=== PATIENT | male | born 1995 | race Caucasian/White ===

== ENCOUNTER 2021-11-01 19:50 | Emergency (ER) | payer OTHER, SELFPAY ==
--- NOTE | ~2021-11-01 | XR_ITS ---
EXAMINATION: XR CHEST CLINICAL INFORMATION: Positive COVID. COMPARISON: None TECHNIQUE: PA view of the chest was obtained. FINDINGS: Normal appearance of the cardiomediastinal silhouette. Multifocal hazy and ill-defined airspace opacities more noticeable in the lower lungs. No pleural effusions or pneumothorax. No acute osseous abnormalities. Surgical clips and anastomosis in the upper quadrant. XR/XR chest 1V IMPRESSION: Multifocal hazy airspace opacities concerning for an atypical viral pneumonia in the appropriate clinical context.
[2021-11-01 20:27] VITALS: BP 126/69; PULSE 102; RESP 18; TEMP 36.4; O2SAT 97; BMI 32.9
[2021-11-01 22:29] VITALS: BP 117/70; PULSE 99; RESP 22; TEMP 36.5; O2SAT 95
--- NOTE | 2021-11-01 23:14 | PC.NURSE ---
CARE TRANSFERED AND REPORT GIVEN TO JORDON LY.
--- NOTE | 2021-11-02 00:02 | ED.GENADULT ---
HPI - General Adult General Chief complaint: General Medical Stated complaint: +covid1 10/28 cough and fever Time Seen by Provider: 11/01/21 23:00 Source: patient Mode of arrival: ambulatory Limitations: no limitations History of Present Illness HPI narrative: 26-year-old male diagnosed with COVID on the 27 of October presents to ED for coughing, fever, and fatigue. Patient denies any chest pain or shortness of breath on exertion. Patient states he is vaccinated 2 shots moderna, but no booster. Patient denies any leg swelling or coughing up blood. Patient denies any pleuretic chest pain. Related Data Previous Rx's Medication Instructions Recorded amoxicillin 875 mg-potassium 1 tab PO Q12H 5 Days #10 tab 11/02/21 clavulanate 125 mg tablet (Augmentin) azithromycin 250 mg tablet See Rx Instructions .ROUTE 11/02/21 .COMPLEX #6 tab dexamethasone 6 mg tablet 6 mg PO DAILY 10 Days #10 tab 11/02/21 (Decadron) Allergies Allergy/AdvReac Type Severity Reaction Status Date / Time No Known Allergies Allergy Verified 11/01/21 20:26 Review of Systems Review of Systems: Coughing, body aches, fever, fatigue, weakness. Denies any chest pain. Denies any shortness of breath on exertion. Yes all other systems are reviewed and are negative [facility] Past Medical History Medical History (Updated 11/02/21 @ 01:13 by PATSY Jason) [place] type short stature syndrome Social History Social History Patient Tobacco Use Status: Never used Tobacco Use of substances other than those prescribed or required for medical reasons: No Advance Directives: No Physical Exam Vital Signs: Vital Signs: Last Vital Signs Temp 97.7 F 11/01/21 22:29 Pulse 100 11/02/21 00:36 Resp 16 11/02/21 00:36 BP 120/70 11/02/21 00:36 Pulse Ox 95 11/02/21 00:36 BMI result Body Mass Index 32.9 Const: General: cooperative, healthy appearing, comfortable, no acute distress, well developed, alert, awake and Physically active Orientation/consciousness: patient oriented x3 HENMT: Head: Yes normal to inspection, Yes No palpable skull fracture present, Yes normocephalic, Yes atraumatic and No abrasion Eyes: General: appearance normal, both eyes and all related structures Neck: Neck: Yes normal visual inspection, Yes full ROM, Yes no lymphadenopathy, Yes no meningeal signs, Yes trachea midline, Yes supple, No anterior neck swelling and No tender Chest: Chest palpation & inspection: normal inspection of the chest and normal palpation of entire chest wall Resp: Effort & Inspection: normal respiratory effort and able to speak in complete sentences Auscultation: clear to auscultation bilaterally Cardio: Jugular venous distension: no JVD Heart sounds: S1 normal heart sound present and S2 normal heart sound present GI: Inspection: Yes normal to inspection and No abdominal wall ecchymosis Palpation (GI): Soft to palpation, not firm, nontender, no guarding and not rigid : General: No CVA tenderness and Yes no CVA tenderness Back/Spine/Pelvis: Back: no CVA tenderness, No CVA tenderness and No back tenderness Skin: General skin exam: no rashes or lesions noted and elasticity normal Neuro: General: patient oriented x3, gait normal, no meningeal signs and CN's II-XI intact bilaterally Cranial nerves: Yes CN's II-XII intact bilaterally Extrem: General: Yes normal to inspection and Yes full ROM Psych: Appearance: grossly normal, well kempt and not disheveled Course Course Course Narrative: Patient O2 saturation on room air 97%. Patient denies any respiratory distress. Do a chest x-ray Reevaluation(s) Reevaluation #1: Chest x-ray shows COVID pneumonia. Not suspecting PE. Negative for any complaints of pleuritic chest pain. O2 saturation on ambulation and room air 97%. Patient educated on signs of PE and respiratory distress and informed to return to the ED if he has any of those symptoms. Time: 12:48 Medical Decision Making [facility] Narrative Medical decision making narrative: COVID pneumonia Discharge Plan Discharge Clinical Impression: Pneumonia due to COVID-19 virus Patient Disposition: Home, Self-Care Instructions: COVID-19 (Coronavirus Disease 2019) (ED) Additional Instructions: X-ray shows COVID pneumonia. Recommend getting portable pulse ox from pharmacy to evaluate oxygen saturation. If oxygen saturation fall below 94% return to the ED immediately. Return to the ED immediately for any coughing up blood, severe chest pain, shortness of breath on exertion, leg swelling, calf pain, weakness, dizziness, or any other concerning symptoms. Continue self-isolation. Please follow up with primary care provider Prescriptions: New amoxicillin-pot clavulanate [Augmentin] 875-125 mg tablet 1 tab PO Q12H 5 Days Qty: 10 RF: 0 azithromycin 250 mg tablet See Rx Instructions .ROUTE .COMPLEX Qty: 6 RF: 0 dexamethasone [Decadron] 6 mg tablet 6 mg PO DAILY 10 Days Qty: 10 RF: 0 Stand Alone Forms: Work/School Release Interventions: ED Discharge Assessment Last Done: 11/02/21 01:29 Discharge Date/Time: 11/02/21 01:29 Print Language: Thai
[2021-11-02 00:36] VITALS: BP 120/70; PULSE 100; RESP 16; O2SAT 95
== END 2021-11-02 01:29 | disposition home or self-care (01) ==
PROVIDERS: Emergency Provider Emergency Medicine Emergency Medical Services
DX: U07.1 COVID-19 (principal); J12.82 Pneumonia due to coronavirus disease 2019
CPT/HCPCS: 71045; 99284